=== PATIENT | female | born 1975 | race Caucasian/White ===

== ENCOUNTER 2016-06-02 03:58 | Emergency (ER) | payer OTHER ==
[~2016-06-02] VITALS: Ht 172.7 cm; Wt 72.6 kg
[~2016-06-02 03:58] MED LIST: DIVA250T4 PO
[2016-06-02 04:26] LABS: BILIRUBIN,URINE NEGATIVE (NEG); GLUCOSE,URINE NEGATIVE (NEG); NITRITE,URINE NEGATIVE (NEG); PROTEIN,URINE NEGATIVE (NEG-TRACE); UROBILINOGEN,URINE 0.2 mg/dL (0.2 mg/dL)
[2016-06-02 04:37] LABS: BACTERIA,URINE 0 /HPF (0-FEW); RBC,URINE OCC /HPF (0-2); SQUAMOUS EPITHELIAL CELL,UR MOD /LPF; WBC,URINE OCC /HPF (0-4)
[2016-06-02] MEDS ORDERED: IV NORMAL SALINE 1000ML BAG 1,000 ML IV ONE (05:00)
[2016-06-02] MEDS ORDERED: ONDANSETRON PF 4 MG/2 ML VIAL. IV ONE (05:00)
[2016-06-02 05:11] LABS: BASO % 1 % (0-3); EOS % 6 % (0-3); HEMATOCRIT 34.9 % (36.0-47.0); HEMOGLOBIN 11.4 g/dL (12.0-15.5); LYMPH # 1.8 x10^3/uL (1.0-4.8); LYMPH % 29 % (24-48); MEAN CORPUSCULAR HEMOGLOBIN 28 pg (25-35); MEAN CORPUSCULAR HGB CONC 33 g/dL (31-37); MEAN CORPUSCULAR VOLUME 85 fL (79-100); MONO % 7 % (0-9); NEUT % 57 % (31-73); PLATELET COUNT 204 x10^3/uL (140-400); RED BLOOD COUNT 4.09 x10^6/uL (3.50-5.40); RED CELL DISTRIBUTION WIDTH 14.9 % (11.5-14.5); WHITE BLOOD COUNT 6.2 x10^3/uL (4.0-11.0)
[2016-06-02] MEDS ORDERED: FENTANYL PF 100 MCG/2 ML VIAL. IV ONE (05:15)
[2016-06-02 05:28] LABS: CREATININE 0.7 mg/dL (0.6-1.0); GFR 92.7; POTASSIUM 3.3 mmol/L (3.5-5.1)
[2016-06-02 05:32] LABS: ALBUMIN 3.8 g/dL (3.4-5.0); ALBUMIN/GLOBULIN RATIO 1.1 (1.0-1.7); TOTAL BILIRUBIN 0.5 mg/dL (0.2-1.0); TOTAL PROTEIN 7.4 g/dL (6.4-8.2)
--- NOTE | 2016-06-02 05:52 | RAD ---
PROCEDURE Ultrasound pelvis complete and transvaginal ultrasound pelvis HISTORY Left lower quadrant pain TECHNIQUE Sonographic examination the pelvis was performed by transabdominal and endovaginal technique. Multiple static images were obtained. COMPARISON November 29, 2013 ULTRASOUND PELVIS COMPLETE TRANSABDOMINAL: The uterus and ovaries are not well seen. TRANSVAGINAL ULTRASOUND PELVIS The uterus is diffusely heterogeneous. The junctional zone is not well seen. The endometrium measures 6 millimeters in thickness. There is a small hypoechoic area in the endometrium that measures 6 x 6 by 7 millimeters. The left ovary is seen with normal blood flow measures 1.6 by 2.2 x 1.1 centimeters contains a dominant follicle that measures 1.0 x 1.5 x 0.9 centimeters. The right ovary appears normal with normal blood flow measures 1.7 by 2.7 x 1.8 centimeters and contains a sub centimeter dominant follicle. IMPRESSION 1. Diffuse heterogeneity of the myometrium is consistent with adenomyosis. 2. Small lesion in the endometrium could be a cyst or polyp. 3. Normal ovaries. Electronically signed by: Fabricio Ochoa MD (Jun 02, 2016 05:51:18)
[2016-06-02 06:48] VITALS: BP 142/89
[2016-06-02] MEDS ORDERED: DIPHENHYDRAMINE HCL 25 MG CAPSULE PO ONE (07:00)
[2016-06-02] MEDS ORDERED: DICYCLOMINE HCL 10 MG CAPSULE PO ONE (07:00)
--- NOTE | 2016-06-02 08:43 | ED.ADGEN ---
Past Medical History Past Medical History: Endometriosis, Other Additional Past Medical Histor: MIGRAINES Past Surgical History: Appendectomy, Other Additional Past Surgical Histo: LAPAROSCOPY X 3, HERNIA Alcohol Use: Occasionally Drug Use: Marijuana Adult General Chief Complaint Chief Complaint: ABDOMINAL PAIN HPI HPI Patient is a 40 year old man, history of endometriosis, ovarian cyst, migraines , status post laparoscopic procedure for endometriosis were her appendix was removed concurrently 3 weeks ago, who presents to the emergency department with complaint of left pelvic pain with concern for recurrent ovarian cyst. Patient states she's been experiencing pain over the past several days, states that he did attempt to contact her COMMERCIAL DRONE SOFTWARE DEVELOPER but he is currently out of town. She denies any fevers or chills, states she has no urinary complaints, no weakness, numbness or tingling, no injuries, no discharge or drainage. She states that she has been using ibuprofen at home, "up to 12 pills", with continued pain. States that her symptoms are consistent with previous episodes of ovarian cyst. Review of Systems Review of Systems Constitutional: Denies fever or chills. [] Eyes: Denies change in visual acuity. [] HENT: Denies nasal congestion or sore throat. [] Respiratory: Denies cough or shortness of breath. [] Cardiovascular: Denies chest pain or edema. [] GI: Left pelvic abdominal pain, nausea, no vomiting, no diarrhea. : Denies dysuria. [] Musculoskeletal: Denies back pain or joint pain. [] Integument: Denies rash. [] Neurologic: Denies headache, focal weakness or sensory changes. [] Endocrine: Denies polyuria or polydipsia. [] Lymphatic: Denies swollen glands. [] Psychiatric: Denies depression or anxiety. [] Current Medications Current Medications Current Medications Medications (Trade) Dose Ordered Sig/Delvin Start Time Stop Time Status Last Admin Dose Admin Dicyclomine HCl (Bentyl) 10 mg 1X ONCE 06/02/16 07:00 06/02/16 07:01 DC 06/02/16 07:00 10 MG Diphenhydramine HCl (Benadryl) 25 mg 1X ONCE 06/02/16 07:00 06/02/16 07:01 DC 06/02/16 07:00 25 MG Fentanyl Citrate (Fentanyl 2ml Vial) 50 mcg 1X ONCE 06/02/16 05:15 06/02/16 05:16 DC 06/02/16 05:33 50 MCG Ondansetron HCl 4 mg 4 mg 1X ONCE 06/02/16 05:00 06/02/16 05:01 DC 06/02/16 05:34 4 MG Sodium Chloride (Iv Sodium Chloride 0.9% 1000ml Bag) 1,000 ml @ 1,000 mls/hr 1X ONCE 06/02/16 05:00 06/02/16 05:59 DC 06/02/16 05:34 1,000 MLS/HR Allergies Allergies Allergies Coded Allergies Type Severity Reaction Last Updated Verified Penicillins Allergy Intermediate hives 10/13/15 Yes chlorpromazine Adverse Reaction Intermediate dystonia 10/13/15 Yes haloperidol Adverse Reaction Intermediate dystonia 10/13/15 No hydralazine Adverse Reaction Intermediate dystonia 10/13/15 Yes hydroxyzine Adverse Reaction Intermediate dystonia 10/13/15 Yes ketorolac Adverse Reaction Intermediate nausea and vomiting 10/13/15 Yes metoclopramide Adverse Reaction Intermediate dystonia 10/13/15 Yes morphine Adverse Reaction Intermediate migraines 10/13/15 Yes prochlorperazine Adverse Reaction Intermediate dystonia 10/13/15 Yes Physical Exam Physical Exam Constitutional: Well developed, well nourished, no acute distress, non-toxic appearance. [] HENT: Normocephalic, atraumatic, bilateral external ears normal, oropharynx moist, no oral exudates, nose normal. [] Eyes: PERRLA, EOMI, conjunctiva normal, no discharge. [] Neck: Normal range of motion, no tenderness, supple, no stridor. [] Cardiovascular:Heart rate regular rhythm, no murmur, S1, S2, no rubs or gallops. [] Lungs & Thorax: Bilateral breath sounds clear to auscultation, no wheezing, rhonchi, rales. No chest tenderness or crepitus. [] Abdomen: Bowel sounds normal, soft, mild tenderness to palpation in the left pelvic region, no rebound, rigidity, no guarding, no masses, no pulsatile masses. [] Skin: Warm, dry, no erythema, no rash. [] Back: No tenderness, no CVA tenderness. [] Extremities: No tenderness, no cyanosis, no clubbing, ROM intact, no edema. [] Neurologic: Alert and oriented X 3, normal motor function, normal sensory function, no focal deficits noted. Psychologic: Affect normal, judgement normal, mood normal. [] Pelvic examination: Normal-appearing external examination, bimanual examination reveals mild tenderness palpation in the left adnexa, no masses identified. No CMT. Speculum examination reveals a small amount of whitish discharge, with a normal-appearing cervix. Specimens taken without issue. Current Patient Data Vital Signs Vital Signs Date Time Temp Pulse Resp B/P Pulse Ox O2 Delivery O2 Flow Rate FiO2 06/02/16 06:48 98 18 142/89 100 Room Air 06/02/16 04:20 97.8 97.8 Lab Values Laboratory Tests Test 06/02/16 03:24 06/02/16 04:20 06/02/16 04:50 POC Urine HCG, Qualitative Hcg negative (Negative) Urine Collection Type Unknown Urine Color Yellow Urine Clarity Clear Urine pH 6.0 Urine Specific [place] 1.015 Urine Protein Negativemg/dL (NEG-TRACE) Urine Glucose (UA) Negativemg/dL (NEG) Urine Ketones (Stick) Negativemg/dL (NEG) Urine Blood Negative (NEG) Urine Nitrite Negative (NEG) Urine Bilirubin Negative (NEG) Urine Urobilinogen Dipstick 0.2mg/dL (0.2 mg/dL) Urine Leukocyte Esterase Negative (NEG) Urine RBC Occ/HPF (0-2) Urine WBC Occ/HPF (0-4) Urine Squamous Epithelial Cells Mod/LPF Urine Bacteria 0/HPF (0-FEW) Urine Mucus Marked/LPF White Blood Count 6.2x10^3/uL (4.0-11.0) Red Blood Count 4.09x10^6/uL (3.50-5.40) Hemoglobin 11.4g/dL (12.0-15.5) L Hematocrit 34.9% (36.0-47.0) L Mean Corpuscular Volume 85fL (79-100) Mean Corpuscular Hemoglobin 28pg (25-35) Mean Corpuscular Hemoglobin Concent 33g/dL (31-37) Red Cell Distribution Width 14.9% (11.5-14.5) H Platelet Count 204x10^3/uL (140-400) Neutrophils (%) (Auto) 57% (31-73) Lymphocytes (%) (Auto) 29% (24-48) Monocytes (%) (Auto) 7% (0-9) Eosinophils (%) (Auto) 6% (0-3) H Basophils (%) (Auto) 1% (0-3) Neutrophils # (Auto) 3.5x10^3uL (1.8-7.7) Lymphocytes # (Auto) 1.8x10^3/uL (1.0-4.8) Monocytes # (Auto) 0.4x10^3/uL (0.0-1.1) Eosinophils # (Auto) 0.4x10^3/uL (0.0-0.7) Basophils # (Auto) 0.0x10^3/uL (0.0-0.2) Sodium Level 138mmol/L (136-145) Potassium Level 3.3mmol/L (3.5-5.1) L Chloride Level 100mmol/L (98-107) Carbon Dioxide Level 27mmol/L (21-32) Anion Gap 11 (6-14) Blood Urea Nitrogen 8mg/dL (7-20) Creatinine 0.7mg/dL (0.6-1.0) Estimated GFR (Cockcroft-Gault) 92.7 BUN/Creatinine Ratio 11 (6-20) Glucose Level 82mg/dL (70-99) Calcium Level 9.0mg/dL (8.5-10.1) Total Bilirubin 0.5mg/dL (0.2-1.0) Aspartate Amino Transferase (AST) 12U/L (15-37) L Alanine Aminotransferase (ALT) 17U/L (14-59) Alkaline Phosphatase 96U/L (46-116) Total Protein 7.4g/dL (6.4-8.2) Albumin 3.8g/dL (3.4-5.0) Albumin/Globulin Ratio 1.1 (1.0-1.7) Laboratory Tests 06/02/16 04:50 Laboratory Tests 06/02/16 04:50 Microbiology 06/02/16 Wet Prep - Final, Complete EKG EKG Not indicated. [] Radiology/Procedures Radiology/Procedures [] [facility] [address] [place] [address] IMAGING REPORT Signed PATIENT: AMADEO LUCIANO ACCOUNT: [id number] : 1975 LOCATION: ER AGE: 40 SEX: F EXAM STATUS: REG ER ORD. PHYSICIAN: GURPREET GOMEZ DO REASON: L pelvic pain/ hx ovarian cyst PROCEDURE: PELVIS W/TV PROCEDURE Ultrasound pelvis complete and transvaginal ultrasound pelvis HISTORY Left lower quadrant pain TECHNIQUE Sonographic examination the pelvis was performed by transabdominal and endovaginal technique. Multiple static images were obtained. COMPARISON November 29, 2013 ULTRASOUND PELVIS COMPLETE TRANSABDOMINAL: The uterus and ovaries are not well seen. TRANSVAGINAL ULTRASOUND PELVIS The uterus is diffusely heterogeneous. The junctional zone is not well seen. The endometrium measures 6 millimeters in thickness. There is a small hypoechoic area in the endometrium that measures 6 x 6 by 7 millimeters. The left ovary is seen with normal blood flow measures 1.6 by 2.2 x 1.1 centimeters contains a dominant follicle that measures 1.0 x 1.5 x 0.9 centimeters. The right ovary appears normal with normal blood flow measures 1.7 by 2.7 x 1.8 centimeters and contains a sub centimeter dominant follicle. IMPRESSION 1. Diffuse heterogeneity of the myometrium is consistent with adenomyosis. 2. Small lesion in the endometrium could be a cyst or polyp. 3. Normal ovaries. Electronically signed by: Olegario Ochoa MD (Jun 02, 2016 05:51:18) DICTATED and SIGNED BY: OLEGARIO OCHOA III, MD DATE: 06/02/16 0551 CC: GURPREET GOMEZ DO; NO PCP ~ Course & Med Decision Making Course & Med Decision Making Pertinent Labs and Imaging studies reviewed. (See chart for details) Patient with multiple allergies to medication, received fentanyl IV in the emergency department while evaluation including laboratory studies and ultrasound of the pelvis was being performed. Laboratory studies revealed a mild hypokalemia with potassium of 3.3, wet prep was negative, urinalysis was unremarkable, ultrasound revealed adenomyosis, and a possible small polyp, no evidence of ovarian cyst or free fluid. I did discuss these findings with patient at bedside, and provided the patient with a copy of her ultrasound. I encouraged the patient to follow-up with her COMMERCIAL [employer] SOFTWARE DEVELOPER, to contact the office for additional assistance even if her OB is out of town. Patient given Bentyl in the emergency department, which she states she has taken previously without significant improvement, I discussed with the patient that I am not able to give her any stronger medications or narcotic medications this time based on her evaluation, as is a chronic issue that she would require evaluation from her OB if those have medications were be to prescribe donated prescribed by her primary care provider. Patient was provided with oral Benadryl in the ED. We discussed concerning symptoms that would prompt return to the ED, patient was discharged home in stable condition with instructions to follow-up with her OB/ [employer]ING [employer] INSTALLER, to return if new or concerning symptoms develop. Dragon Disclaimer Dragon Disclaimer This electronic medical record was generated, in whole or in part, using a voice recognition dictation system. Departure Impression: Primary Impression: Pelvic pain Disposition: 01 HOME, SELF-CARE Condition: IMPROVED GURPREET GOMEZ DO Jun 02, 2016 08:43
== END 2016-06-02 07:15 | disposition home or self-care (01) ==
LOC: ER 03:58
DX: R10.2 Pelvic and perineal pain (principal); R10.32 Left lower quadrant pain; G43.909 Migraine, unspecified, not intractable, without status migrainosus; F12.10 Cannabis abuse, uncomplicated; Z90.49 Acquired absence of other specified parts of digestive tract; Z98.890 Other specified postprocedural states; Z88.0 Allergy status to penicillin; Z88.5 Allergy status to narcotic agent; Z88.8 Allergy status to other drugs, medicaments and biological substances
CPT/HCPCS: 76830; 76856; 80053; 81001; 81025; 85027; 87491; 87591; 96361; 96374; 96375; 99285; J2405; J3010; J7030; Q0111; Q0163

== ENCOUNTER 2016-10-25 16:39 | Emergency (ER) | payer OTHER ==
[~2016-10-25] VITALS: Ht 165.1 cm; Wt 70.8 kg
[2016-10-25 17:58] LABS: BILIRUBIN,URINE NEGATIVE (NEG); GLUCOSE,URINE NEGATIVE (NEG); NITRITE,URINE NEGATIVE (NEG); PH,URINE 6.5; PROTEIN,URINE NEGATIVE (NEG-TRACE); UROBILINOGEN,URINE 0.2 mg/dL (0.2 mg/dL)
[2016-10-25 18:03] LABS: BACTERIA,URINE 0 /HPF (0-FEW); RBC,URINE OCC /HPF (0-2); SQUAMOUS EPITHELIAL CELL,UR MOD /LPF; WBC,URINE 0 /HPF (0-4)
[2016-10-25 18:26] LABS: BASO % 1 % (0-3); EOS % 5 % (0-3); HEMATOCRIT 35.4 % (36.0-47.0); HEMOGLOBIN 11.6 g/dL (12.0-15.5); LYMPH # 1.8 x10^3/uL (1.0-4.8); LYMPH % 30 % (24-48); MEAN CORPUSCULAR HEMOGLOBIN 28 pg (25-35); MEAN CORPUSCULAR HGB CONC 33 g/dL (31-37); MEAN CORPUSCULAR VOLUME 86 fL (79-100); MONO % 7 % (0-9); NEUT % 58 % (31-73); PLATELET COUNT 174 x10^3/uL (140-400); RED BLOOD COUNT 4.11 x10^6/uL (3.50-5.40); RED CELL DISTRIBUTION WIDTH 15.1 % (11.5-14.5); WHITE BLOOD COUNT 6.1 x10^3/uL (4.0-11.0)
[2016-10-25] MEDS ORDERED: fentaNYL PF VIAL 100 MCG/2 ML VIAL IV ONE (18:30)
[2016-10-25] MEDS ORDERED: ONDANSETRON PF 4 MG/2 ML VIAL. IV ONE ×2 (18:30→20:15)
[2016-10-25] MEDS ORDERED: diphenhydrAMINE 50 MG/ML VIAL IVP ONE ×2 (18:30→20:15)
[2016-10-25 18:37] LABS: CALCIUM 8.4 mg/dL (8.5-10.1); CREATININE 0.9 mg/dL (0.6-1.0); GFR 69.3; POTASSIUM 3.3 mmol/L (3.5-5.1)
[2016-10-25 18:43] LABS: ALBUMIN 3.6 g/dL (3.4-5.0); ALBUMIN/GLOBULIN RATIO 1.1 (1.0-1.7); TOTAL BILIRUBIN 0.3 mg/dL (0.2-1.0)
[2016-10-25 19:47] VITALS: BP 128/87
--- NOTE | 2016-10-25 19:56 | RAD ---
EXAM: Pelvic sonogram. HISTORY: Right lower quadrant pain. TECHNIQUE: Transabdominal and transvaginal sonographic imaging of the pelvis was performed. COMPARISON: 06/02/2016. FINDINGS: The uterus measures 8.7 x 4.7 x 4.1 cm. The endometrial stripe measures 6 mm in thickness. The junctional zone is indistinct, suggesting adenomyosis. There there is suggestion of a small endometrial cyst. There is fluid within the endocervical canal. The right ovary measures 2.1 x 1.4 x 1.4 cm. The left ovary measures 2.2 x 1.4 x 1.1 cm. There is normal blood flow within both ovaries. There are bilateral dominant ovarian follicles, measuring 1.1 cm on the right and 1.1 cc on the left. There is no pelvic free fluid. IMPRESSION: 1. Indistinct junctional zone suggesting adenomyosis. This is stable in appearance. 2. Suspected small endometrial cyst. 3. Nonspecific fluid within the endocervical canal. Correlate with the phase of the patient's menstrual size. 4. Small dominant bilateral ovarian follicles. Electronically signed by: Juana Cotto MD (10/25/2016 7:53 PM) [facility]
[2016-10-25] MEDS ORDERED: HYDROcodone/APAP 5/325MG 1 TAB TABLET PO ONE ×2 (20:15)
--- NOTE | 2016-10-25 20:18 | PHYS DOC ---
Past Medical History Past Medical History: Endometriosis, Ovarian Cyst, Other Additional Past Medical Histor: MIGRAINES Past Surgical History: Appendectomy, Other Additional Past Surgical Histo: LAPAROSCOPY X 3, INGUINAL HERNIA SX X 3 Alcohol Use: Rarely Drug Use: Marijuana Adult General Chief Complaint Chief Complaint: ABDOMINAL PAIN HPI HPI Patient is a 40 year old female with history of chronic pelvic pain, dermatosis , ovarian cyst, adhesions from previous laparoscopic's surgeries and adenomyosis who presents with exacerbation of pelvic pain. Patient reports right lower quadrant pain, tenderness worse with palpation and movement. Pain is described as both dull and burning is rated moderate. It is unable to find position of comfort. Patient is not currently on control as she is trying to become . She last menstrual period was 2 weeks ago. Patient reports nausea which she relates to pain. Denies fever chills, vomiting, sweats, flank pain. No history of kidney stones. Denies dysuria, urinary frequency and urgency. No vaginal discharge. Previous cholecystectomy and appendectomy. No other acute symptoms or complaints. Review of Systems Review of Systems Review symptoms as per history of present illness. All other review symptoms are negative. Current Medications Current Medications Current Medications Medications (Trade) Dose Ordered Sig/Delvin Start Time Stop Time Status Last Admin Dose Admin Acetaminophen/ Hydrocodone Bitart (Lortab 5/325) 1 tab 1X ONCE 10/25/16 20:15 10/25/16 20:16 Diphenhydramine HCl (Benadryl) 25 mg 1X ONCE 10/25/16 20:15 10/25/16 20:16 Fentanyl Citrate (Fentanyl 2ml Vial) 50 mcg 1X ONCE 10/25/16 18:30 10/25/16 18:32 DC 10/25/16 18:52 50 MCG Ondansetron HCl (Zofran) 4 mg 1X ONCE 10/25/16 20:15 10/25/16 20:16 Allergies Allergies Allergies Coded Allergies Type Severity Reaction Last Updated Verified Penicillins Allergy Intermediate hives 10/13/15 Yes chlorpromazine Adverse Reaction Intermediate dystonia 10/13/15 Yes haloperidol Adverse Reaction Intermediate dystonia 10/13/15 No hydralazine Adverse Reaction Intermediate dystonia 10/13/15 Yes hydroxyzine Adverse Reaction Intermediate dystonia 10/13/15 Yes ketorolac Adverse Reaction Intermediate nausea and vomiting 10/13/15 Yes metoclopramide Adverse Reaction Intermediate dystonia 10/13/15 Yes morphine Adverse Reaction Intermediate migraines 10/13/15 Yes prochlorperazine Adverse Reaction Intermediate dystonia 10/13/15 Yes Physical Exam Physical Exam Constitutional: Well developed, well nourished, alert discomfort secondary to pain [] HENT: Normocephalic, atraumatic, bilateral external ears normal, oropharynx moist, no oral exudates, nose normal. [] Eyes: PERRLA, EOMI, conjunctiva normal, no discharge. [] Neck: Normal range of motion, no tenderness, supple, no stridor. [] Cardiovascular:Heart rate regular rhythm, no murmur. [] Lungs & Thorax: Bilateral breath sounds clear to auscultation [] Abdomen: Bowel sounds normal, soft, lower pelvic pain, tenderness, no rebound rigidity or guarding.. [] Skin: Warm, dry, no erythema, no rash. [] Back: No tenderness, no CVA tenderness. [] Extremities: No tenderness, no cyanosis, no clubbing, ROM intact, no edema. [] Neurologic: Alert and oriented X 3, normal motor function, normal sensory function, no focal deficits noted. [] Psychologic: Affect normal, judgement normal, mood normal. [] Current Patient Data Vital Signs Vital Signs Date Time Temp Pulse Resp B/P (MAP) Pulse Ox O2 Delivery O2 Flow Rate FiO2 10/25/16 19:17 70 126/88 (101) 99 Room Air 10/25/16 18:52 16 10/25/16 18:01 98.4 98.4 Lab Values Laboratory Tests Test 10/25/16 16:54 10/25/16 17:41 10/25/16 18:14 POC Urine HCG, Qualitative Hcg negative (Negative) Urine Collection Type Unknown Urine Color Yellow Urine Clarity Clear Urine pH 6.5 Urine Specific [place] 1.010 Urine Protein Negative mg/dL (NEG-TRACE) Urine Glucose (UA) Negative mg/dL (NEG) Urine Ketones (Stick) Negative mg/dL (NEG) Urine Blood Negative (NEG) Urine Nitrite Negative (NEG) Urine Bilirubin Negative (NEG) Urine Urobilinogen Dipstick 0.2 mg/dL (0.2 mg/dL) Urine Leukocyte Esterase Negative (NEG) Urine RBC Occ /HPF (0-2) Urine WBC 0 /HPF (0-4) Urine Squamous Epithelial Cells Mod /LPF Urine Bacteria 0 /HPF (0-FEW) Urine Mucus Mod /LPF White Blood Count 6.1 x10^3/uL (4.0-11.0) Red Blood Count 4.11 x10^6/uL (3.50-5.40) Hemoglobin 11.6 g/dL (12.0-15.5) L Hematocrit 35.4 % (36.0-47.0) L Mean Corpuscular Volume 86 fL (79-100) Mean Corpuscular Hemoglobin 28 pg (25-35) Mean Corpuscular Hemoglobin Concent 33 g/dL (31-37) Red Cell Distribution Width 15.1 % (11.5-14.5) H Platelet Count 174 x10^3/uL (140-400) Neutrophils (%) (Auto) 58 % (31-73) Lymphocytes (%) (Auto) 30 % (24-48) Monocytes (%) (Auto) 7 % (0-9) Eosinophils (%) (Auto) 5 % (0-3) H Basophils (%) (Auto) 1 % (0-3) Neutrophils # (Auto) 3.5 x10^3uL (1.8-7.7) Lymphocytes # (Auto) 1.8 x10^3/uL (1.0-4.8) Monocytes # (Auto) 0.4 x10^3/uL (0.0-1.1) Eosinophils # (Auto) 0.3 x10^3/uL (0.0-0.7) Basophils # (Auto) 0.0 x10^3/uL (0.0-0.2) Sodium Level 139 mmol/L (136-145) Potassium Level 3.3 mmol/L (3.5-5.1) L Chloride Level 105 mmol/L (98-107) Carbon Dioxide Level 27 mmol/L (21-32) Anion Gap 7 (6-14) Blood Urea Nitrogen 7 mg/dL (7-20) Creatinine 0.9 mg/dL (0.6-1.0) Estimated GFR (Cockcroft-Gault) 69.3 BUN/Creatinine Ratio 8 (6-20) Glucose Level 85 mg/dL (70-99) Calcium Level 8.4 mg/dL (8.5-10.1) L Total Bilirubin 0.3 mg/dL (0.2-1.0) Aspartate Amino Transferase (AST) 10 U/L (15-37) L Alanine Aminotransferase (ALT) 17 U/L (14-59) Alkaline Phosphatase 74 U/L (46-116) Total Protein 7.0 g/dL (6.4-8.2) Albumin 3.6 g/dL (3.4-5.0) Albumin/Globulin Ratio 1.1 (1.0-1.7) Laboratory Tests 10/25/16 18:14 Laboratory Tests 10/25/16 18:14 EKG EKG [] Radiology/Procedures Radiology/Procedures [Pelvic ultrasound: No acute findings per radiology report.] Course & Med Decision Making Course & Med Decision Making Pertinent Labs and Imaging studies reviewed. (See chart for details) [Exacerbation of chronic pelvic pain. Lab work, ultrasound unrevealing for acute pathology. Patient given pain and nausea medication while in the ED. Will defer further management of chronic pain to patient's PCP and/or SUEDE CLEANER.] Dragon Disclaimer Dragon Disclaimer This electronic medical record was generated, in whole or in part, using a voice recognition dictation system. Departure Departure Impression: Primary Impression: Pelvic pain Disposition: 01 HOME, SELF-CARE Condition: IMPROVED Referrals: LATANYA SILVERIO MD (PCP) Patient Instructions: Pelvic Pain, Female, [id number] Additional Instructions: Please follow-up with your PCP and/or egg crater for management of chronic pelvic pain. MARY ANN BOND DO Oct 25, 2016 20:18
== END 2016-10-25 20:30 | disposition home or self-care (01) ==
LOC: ER 16:39
DX: R10.2 Pelvic and perineal pain (principal); G89.29 Other chronic pain; R10.31 Right lower quadrant pain; R00.2 Palpitations; G43.909 Migraine, unspecified, not intractable, without status migrainosus; Z90.49 Acquired absence of other specified parts of digestive tract; Z88.0 Allergy status to penicillin; Z88.5 Allergy status to narcotic agent; Z88.8 Allergy status to other drugs, medicaments and biological substances
CPT/HCPCS: 36415; 76856; 80053; 81001; 81025; 85025; 86141; 96374; 96375; 96376; 99285; J1200; J2405; J3010

== ENCOUNTER 2017-05-09 09:56 | Emergency (ER) | payer OTHER ==
[2017-05-09 10:10] LABS: URINE HCG POC HCG NEGATIVE (Negative)
[2017-05-09] MEDS: IV NORMAL SALINE 1000ML BAG 1,000 ML IV (10:30)
[2017-05-09] MEDS: fentaNYL PF VIAL 100 MCG/2 ML VIAL IV (10:30)
[2017-05-09] MEDS: ONDANSETRON PF 4 MG/2 ML VIAL. IV (10:30)
[2017-05-09 10:37] LABS: ADD MAN DIFF? NO
[2017-05-09 10:42] LABS: BASO % 1 % (0-3); EOS # 0.1 x10^3/uL (0.0-0.7); EOS % 3 % (0-3); HEMOGLOBIN 12.5 g/dL (12.0-15.5); LYMPH # 1.3 x10^3/uL (1.0-4.8); LYMPH % 24 % (24-48); MEAN CORPUSCULAR HEMOGLOBIN 26 pg (25-35); MEAN CORPUSCULAR HGB CONC 33 g/dL (31-37); MEAN CORPUSCULAR VOLUME 79 fL (79-100); MONO # 0.3 x10^3/uL (0.0-1.1); MONO % 6 % (0-9); NEUT # 3.7 x10^3uL (1.8-7.7); NEUT % 66 % (31-73); PLATELET COUNT 214 x10^3/uL (140-400); RED BLOOD COUNT 4.81 x10^6/uL (3.50-5.40); RED CELL DISTRIBUTION WIDTH 17.5 % (11.5-14.5); WHITE BLOOD COUNT 5.5 x10^3/uL (4.0-11.0)
[2017-05-09 10:50] LABS: ANION GAP 9 (6-14); BLOOD UREA NITROGEN 10 mg/dL (7-20); BUN/CREATININE RATIO 13 (6-20); CALCIUM 9.3 mg/dL (8.5-10.1); CARBON DIOXIDE 27 mmol/L (21-32); CHLORIDE 104 mmol/L (98-107); CREATININE 0.8 mg/dL (0.6-1.0); GLUCOSE 98 mg/dL (70-99); POTASSIUM 4.2 mmol/L (3.5-5.1); SODIUM 140 mmol/L (136-145)
[2017-05-09 10:56] LABS: ALBUMIN 3.5 g/dL (3.4-5.0); ALBUMIN/GLOBULIN RATIO 0.8 (1.0-1.7); ALK PHOS 108 U/L (46-116); ALT (SGPT) 16 U/L (14-59); AST (SGOT) 21 U/L (15-37); TOTAL BILIRUBIN 0.5 mg/dL (0.2-1.0); TOTAL PROTEIN 8.1 g/dL (6.4-8.2)
[2017-05-09 11:57] LABS: BILIRUBIN,URINE NEGATIVE (NEG); CLARITY,URINE CLEAR; COLOR,URINE YELLOW; GLUCOSE,URINE NEGATIVE (NEG); NITRITE,URINE NEGATIVE (NEG); PROTEIN,URINE NEGATIVE (NEG-TRACE); UROBILINOGEN,URINE 0.2 mg/dL (0.2 mg/dL)
[2017-05-09 12:03] LABS: BACTERIA,URINE MANY /HPF (0-FEW); SQUAMOUS EPITHELIAL CELL,UR MANY /LPF
[2017-05-10 14:28] LABS: CHLAMYDIA PROBE Negative (Negative); GC PROBE Negative (Negative)
== END 2017-05-09 13:01 | disposition home or self-care (01) ==
LOC: ER 09:56
DX: R10.2 Pelvic and perineal pain (principal); Z76.5 Malingerer [conscious simulation]; G43.909 Migraine, unspecified, not intractable, without status migrainosus; F12.10 Cannabis abuse, uncomplicated; Z90.49 Acquired absence of other specified parts of digestive tract; Z98.890 Other specified postprocedural states; Z88.0 Allergy status to penicillin; Z88.6 Allergy status to analgesic agent; Z88.5 Allergy status to narcotic agent; Z88.8 Allergy status to other drugs, medicaments and biological substances
CPT/HCPCS: 36415; 76830; 80053; 81001; 81025; 85025; 87491; 87591; 96361; 96374; 96375; 99285-25; J2405; J3010; J7030

== ENCOUNTER 2017-11-06 18:03 | Emergency (ER) | payer SELFPAY ==
[~2017-11-06] VITALS: Ht 165.1 cm; Wt 62.6 kg
[~2017-11-06 18:03] MED LIST changes: +AZIT500T PO; +CEFI200S PO; +METR500T PO; +NAPR-683 PO
[2017-11-06 19:09] VITALS: BP 146/94
--- NOTE | 2017-11-06 19:13 | PHYS DOC ---
Past Medical History Past Medical History: Endometriosis, Ovarian Cyst, Other Additional Past Medical Histor: MIGRAINES Past Surgical History: Appendectomy, Other Additional Past Surgical Histo: LAPAROSCOPY X 3, INGUINAL HERNIA SX X 3 Alcohol Use: Occasionally Drug Use: Marijuana Adult General Chief Complaint Chief Complaint: ABDOMINAL PAIN HPI HPI Patient is a 41 year old female with a history of ovarian cyst presents the ED complaining of abdominal pain times one day. Patient states the pain started last night. Describes the pain as sharp. Rates the pain as 7 out of 10. States she has taken [id number] medications without relief. Pain is in the right lower quadrant. Patient has a history of an appendectomy. Denies vaginal discharge, STD exposure, vaginal bleeding, back pain, diarrhea, nausea/vomiting , chest pain, shortness of breath or fever. Review of Systems Review of Systems Constitutional: Denies fever or chills [] Eyes: Denies change in visual acuity, redness, or eye pain [] HENT: Denies nasal congestion or sore throat [] Respiratory: Denies cough or shortness of breath [] Cardiovascular: No additional information not addressed in HPI [] GI: Complains of abdominal pain. Denies nausea, vomiting, bloody stools or diarrhea [] : Denies dysuria or hematuria [] Musculoskeletal: Denies back pain or joint pain [] Integument: Denies rash or skin lesions [] Neurologic: Denies headache, focal weakness or sensory changes [] All other systems were reviewed and found to be within normal limits, except as documented in this note. Current Medications Current Medications Current Medications Medications (Trade) Dose Ordered Sig/Delvin Start Time Stop Time Status Last Admin Dose Admin Diphenhydramine HCl (Benadryl) 25 mg 1X ONCE 11/06/17 21:00 11/06/17 21:01 DC 11/06/17 21:00 25 MG Fentanyl Citrate (Fentanyl 2ml Vial) 75 mcg 1X ONCE 11/06/17 19:30 11/06/17 19:31 DC 11/06/17 20:27 75 MCG Ondansetron HCl (Zofran) 4 mg 1X ONCE 11/06/17 19:30 11/06/17 19:31 DC 11/06/17 20:27 4 MG Allergies Allergies Allergies Coded Allergies Type Severity Reaction Last Updated Verified Penicillins Allergy Intermediate hives 10/13/15 Yes chlorpromazine Adverse Reaction Intermediate dystonia 10/13/15 Yes haloperidol Adverse Reaction Intermediate dystonia 10/13/15 No hydralazine Adverse Reaction Intermediate dystonia 10/13/15 Yes hydroxyzine Adverse Reaction Intermediate dystonia 10/13/15 Yes ketorolac Adverse Reaction Intermediate nausea and vomiting 10/13/15 Yes metoclopramide Adverse Reaction Intermediate dystonia 10/13/15 Yes morphine Adverse Reaction Intermediate migraines 10/13/15 Yes prochlorperazine Adverse Reaction Intermediate dystonia 10/13/15 Yes Physical Exam Physical Exam Constitutional: Well developed, well nourished, no acute distress, non-toxic appearance. [] HENT: Normocephalic, atraumatic Neck: Normal range of motion, no tenderness, supple, no stridor. [] Cardiovascular:Heart rate regular rhythm, no murmur [] Lungs & Thorax: Bilateral breath sounds clear to auscultation [] Abdomen: Bowel sounds normal, soft, mild right lower abdominal tenderness, no masses, no pulsatile masses. [] Skin: Warm, dry, no erythema, no rash. [] Back: No tenderness, no CVA tenderness. [] Extremities: No tenderness, no cyanosis, no clubbing, ROM intact, no edema. [] Neurologic: Alert and oriented X 3, normal motor function, normal sensory function, no focal deficits noted. [] Psychologic: Affect normal, judgement normal, mood normal. [] Current Patient Data Vital Signs Vital Signs Date Time Temp Pulse Resp B/P (MAP) Pulse Ox O2 Delivery O2 Flow Rate FiO2 11/06/17 20:27 16 98 Room Air 11/06/17 19:09 98.3 108 146/94 (111) 98.3 Lab Values Laboratory Tests Test 11/06/17 19:04 11/06/17 20:22 Urine Collection Type Void Urine Color Yellow Urine Clarity Clear Urine pH 6.0 Urine Specific [place] 1.010 Urine Protein Negative mg/dL (NEG-TRACE) Urine Glucose (UA) Negative mg/dL (NEG) Urine Ketones (Stick) Negative mg/dL (NEG) Urine Blood Negative (NEG) Urine Nitrite Negative (NEG) Urine Bilirubin Negative (NEG) Urine Urobilinogen Dipstick 0.2 mg/dL (0.2 mg/dL) Urine Leukocyte Esterase Negative (NEG) Urine RBC 0 /HPF (0-2) Urine WBC 1-4 /HPF (0-4) Urine Squamous Epithelial Cells Few /LPF Urine Bacteria Few /HPF (0-FEW) Urine Mucus Slight /LPF White Blood Count 5.5 x10^3/uL (4.0-11.0) Red Blood Count 4.32 x10^6/uL (3.50-5.40) Hemoglobin 12.5 g/dL (12.0-15.5) Hematocrit 36.8 % (36.0-47.0) Mean Corpuscular Volume 85 fL (79-100) Mean Corpuscular Hemoglobin 29 pg (25-35) Mean Corpuscular Hemoglobin Concent 34 g/dL (31-37) Red Cell Distribution Width 15.3 % (11.5-14.5) H Platelet Count 109 x10^3/uL (140-400) L Neutrophils (%) (Auto) 58 % (31-73) Lymphocytes (%) (Auto) 30 % (24-48) Monocytes (%) (Auto) 4 % (0-9) Eosinophils (%) (Auto) 8 % (0-3) H Basophils (%) (Auto) 0 % (0-3) Neutrophils # (Auto) 3.1 x10^3uL (1.8-7.7) Lymphocytes # (Auto) 1.6 x10^3/uL (1.0-4.8) Monocytes # (Auto) 0.2 x10^3/uL (0.0-1.1) Eosinophils # (Auto) 0.4 x10^3/uL (0.0-0.7) Basophils # (Auto) 0.0 x10^3/uL (0.0-0.2) Sodium Level 140 mmol/L (136-145) Potassium Level 3.5 mmol/L (3.5-5.1) Chloride Level 105 mmol/L (98-107) Carbon Dioxide Level 26 mmol/L (21-32) Anion Gap 9 (6-14) Blood Urea Nitrogen 8 mg/dL (7-20) Creatinine 0.7 mg/dL (0.6-1.0) Estimated GFR (Cockcroft-Gault) 92.2 BUN/Creatinine Ratio 11 (6-20) Glucose Level 84 mg/dL (70-99) Calcium Level 8.4 mg/dL (8.5-10.1) L Total Bilirubin 0.2 mg/dL (0.2-1.0) Aspartate Amino Transferase (AST) 11 U/L (15-37) L Alanine Aminotransferase (ALT) 16 U/L (14-59) Alkaline Phosphatase 82 U/L (46-116) Total Protein 7.1 g/dL (6.4-8.2) Albumin 3.4 g/dL (3.4-5.0) Albumin/Globulin Ratio 0.9 (1.0-1.7) L Laboratory Tests 11/06/17 20:22 Laboratory Tests 11/06/17 20:22 EKG EKG [] Radiology/Procedures Radiology/Procedures PROCEDURE: PELVIS COMPLETE Indication:RT PELVIC PAIN TECHNIQUE: Grayscale, color Doppler and spectral waveform images of the pelvis obtained. COMPARISON:Previous study from 05/09/2017 FINDINGS: Trace amount of fluid is seen in the endocervical canal. Nabothian cysts are seen in the cervix, the largest measuring 1 cm. The uterus is anteverted and measures 8.7 x 5.1 x 4.5 centers (longitudinal, transverse, AP). Endometrium measures 9 mm in thickness and is within normal limits. No endometrial vascularity. 0.4 x 0.3 x 0.5 cm anechoic lesion in the myometrium likely myometrial cyst. The left ovary measures 2.5 x 1.7 x 1.6 cm with a 1.0 x 1.5 x 1.6 m anechoic lesion most likely a dominant follicle. The left ovary demonstrates evidence of blood flow. The right ovary measures 2.6 x 1.5 x 1.4 cm with a 1.2 x 1.0 x 1.3 cm anechoic lesion most likely a dominant follicle. Right ovary demonstrates evidence of blood flow. IMPRESSION: 1. Bilateral ovaries demonstrate evidence of blood flow. 2. Trace amount of fluid in the endocervical canal likely physiologic. [] Course & Med Decision Making Course & Med Decision Making Pertinent Labs and Imaging studies reviewed. (See chart for details) []Discussed lab and imaging findings with patient. Patient's pain improved. States she is much better. On reexamination, abdomen is soft nontender nondistended. No peritoneal signs. Tolerating by mouth. Discussed symptomatic treatment outpatient. Discussed follow-up with [facility] this week. Provided contact information/education. Discussed reasons to return to the ED. Patient understands and agrees with plan. Dragon Disclaimer Dragon Disclaimer This electronic medical record was generated, in whole or in part, using a voice recognition dictation system. Departure Departure Impression: Primary Impression: Pelvic pain Disposition: HOME, SELF-CARE Condition: IMPROVED Referrals: LATANYA SILVERIO MD (PCP) MIRNA PINO MD Patient Instructions: Pelvic Pain, Female DARNELL TATUM Nov 06, 2017 19:13
[2017-11-06 19:14] LABS: BILIRUBIN,URINE NEGATIVE (NEG); CLARITY,URINE CLEAR; COLOR,URINE YELLOW; NITRITE,URINE NEGATIVE (NEG); PROTEIN,URINE NEGATIVE (NEG-TRACE); UROBILINOGEN,URINE 0.2 mg/dL (0.2 mg/dL)
[2017-11-06 19:23] LABS: RBC,URINE 0 /HPF (0-2)
[2017-11-06 19:24] LABS: BACTERIA,URINE FEW /HPF (0-FEW); SQUAMOUS EPITHELIAL CELL,UR FEW /LPF
[2017-11-06] MEDS: ONDANSETRON PF 4 MG/2 ML VIAL. IV ONE (20:27)
[2017-11-06] MEDS: fentaNYL PF VIAL 100 MCG/2 ML VIAL IV ONE (20:27)
[2017-11-06 20:29] LABS: BASO % 0 % (0-3); EOS # 0.4 x10^3/uL (0.0-0.7); EOS % 8 % (0-3); HEMATOCRIT 36.8 % (36.0-47.0); HEMOGLOBIN 12.5 g/dL (12.0-15.5); LYMPH # 1.6 x10^3/uL (1.0-4.8); LYMPH % 30 % (24-48); MEAN CORPUSCULAR HEMOGLOBIN 29 pg (25-35); MEAN CORPUSCULAR HGB CONC 34 g/dL (31-37); MEAN CORPUSCULAR VOLUME 85 fL (79-100); MONO # 0.2 x10^3/uL (0.0-1.1); MONO % 4 % (0-9); NEUT # 3.1 x10^3uL (1.8-7.7); NEUT % 58 % (31-73); PLATELET COUNT 109 x10^3/uL (140-400); RED BLOOD COUNT 4.32 x10^6/uL (3.50-5.40); RED CELL DISTRIBUTION WIDTH 15.3 % (11.5-14.5); WHITE BLOOD COUNT 5.5 x10^3/uL (4.0-11.0)
--- NOTE | 2017-11-06 20:33 | RAD ---
Indication:RT PELVIC PAIN TECHNIQUE: Grayscale, color Doppler and spectral waveform images of the pelvis obtained. COMPARISON:Previous study from 05/09/2017 FINDINGS: Trace amount of fluid is seen in the endocervical canal. Nabothian cysts are seen in the cervix, the largest measuring 1 cm. The uterus is anteverted and measures 8.7 x 5.1 x 4.5 centers (longitudinal, transverse, AP). Endometrium measures 9 mm in thickness and is within normal limits. No endometrial vascularity. 0.4 x 0.3 x 0.5 cm anechoic lesion in the myometrium likely myometrial cyst. The left ovary measures 2.5 x 1.7 x 1.6 cm with a 1.0 x 1.5 x 1.6 m anechoic lesion most likely a dominant follicle. The left ovary demonstrates evidence of blood flow. The right ovary measures 2.6 x 1.5 x 1.4 cm with a 1.2 x 1.0 x 1.3 cm anechoic lesion most likely a dominant follicle. Right ovary demonstrates evidence of blood flow. IMPRESSION: 1. Bilateral ovaries demonstrate evidence of blood flow. 2. Trace amount of fluid in the endocervical canal likely physiologic. Electronically signed by: Oleg Bruno DO (11/06/2017 8:29 PM) [facility]
[2017-11-06 20:36] LABS: CALCIUM 8.4 mg/dL (8.5-10.1); CREATININE 0.7 mg/dL (0.6-1.0); GFR 92.2; POTASSIUM 3.5 mmol/L (3.5-5.1)
[2017-11-06 20:43] LABS: ALBUMIN 3.4 g/dL (3.4-5.0); ALBUMIN/GLOBULIN RATIO 0.9 (1.0-1.7); TOTAL BILIRUBIN 0.2 mg/dL (0.2-1.0); TOTAL PROTEIN 7.1 g/dL (6.4-8.2)
[2017-11-06] MEDS: diphenhydrAMINE HCL 25 MG CAPSULE PO ONE (21:00)
== END 2017-11-06 21:44 | disposition home or self-care (01) ==
LOC: ER 18:03
DX: N88.8 Other specified noninflammatory disorders of cervix uteri (principal); R10.2 Pelvic and perineal pain; R10.31 Right lower quadrant pain; G43.909 Migraine, unspecified, not intractable, without status migrainosus; Z90.89 Acquired absence of other organs; Z88.0 Allergy status to penicillin; Z88.5 Allergy status to narcotic agent; Z88.8 Allergy status to other drugs, medicaments and biological substances
CPT/HCPCS: 36415; 76856; 80053; 81001; 85025; 96374; 96375; 99285; J2405; J3010; Q0163

== ENCOUNTER 2018-03-04 11:23 | Emergency (ER) | payer SELFPAY ==
[~2018-03-04] VITALS: Ht 165.1 cm; Wt 59.0 kg
[2018-03-04 11:48] LABS: BILIRUBIN,URINE NEGATIVE (NEG); CLARITY,URINE CLEAR; COLOR,URINE YELLOW; NITRITE,URINE NEGATIVE (NEG); PROTEIN,URINE NEGATIVE (NEG-TRACE); UROBILINOGEN,URINE 0.2 mg/dL (0.2 mg/dL)
[2018-03-04 11:58] LABS: BACTERIA,URINE 0 /HPF (0-FEW); RBC,URINE 0 /HPF (0-2); SQUAMOUS EPITHELIAL CELL,UR FEW /LPF; WBC,URINE 0 /HPF (0-4)
[2018-03-04] MEDS ORDERED: fentaNYL PF VIAL 100 MCG/2 ML VIAL IV ONE (12:00)
[2018-03-04] MEDS ORDERED: ONDANSETRON ODT 4 MG TAB.RAPDIS. PO ONE (12:00)
[2018-03-04] MEDS ORDERED: diphenhydrAMINE HCL 25 MG CAPSULE PO ONE ×2 (12:45→12:48)
[2018-03-04] MEDS ORDERED: KETAMINE HCL IN STERILE WATER 50 MG/5 ML SYRINGE IV ONE (14:00)
[2018-03-04] MEDS ORDERED: ONDANSETRON PF 4 MG/2 ML VIAL. IV ONE (14:00)
--- NOTE | 2018-03-04 14:39 | RAD ---
ACUTE ABDOMEN SERIES History: LOW ABDOMEN PAIN FOR 3 DAYS, VAGINAL BLEEDING. Comparison: None are available Single view of the chest demonstrates no evidence of infiltrate, effusion or pneumothorax. There is no infiltrate or consolidation. Cardiac silhouette not enlarged. No evidence of free intraperitoneal gas. Bowel gas pattern is not overtly obstructive. There is mild gas and stool in the colon. No pathologic calcifications are suggested. IMPRESSION: No acute radiographic findings. Electronically signed by: Kei Vital MD (03/04/2018 2:35 PM) [facility]
--- NOTE | 2018-03-04 14:55 | RAD ---
Indication:SEVERE RIGHT SIDED PELVIC PAIN/VAGINAL BLEEDING X'S 2 DAYS. LMP-02/18/2018. G2,P0. TECHNIQUE: Grayscale, color Doppler and spectral waveform images of the pelvis obtained. COMPARISON:11/06/2017 FINDINGS: Uterus is anteverted and measures 8.8 x 4.7 x 6.1 cm (longitudinal, AP, transverse). Endometrial stripe measures 7 mm in thickness and is within normal limits. 0.7 x 0.4 x 0.8 cm round anechoic lesion is seen in the anterior to or anterior aspect of the cervix most likely simple or nabothian cyst. Bilateral ovaries are not seen. No free pelvic fluid. IMPRESSION: 1. Bilateral ovaries not seen. Electronically signed by: Oleg Bruno DO (03/04/2018 2:51 PM) [facility]
[2018-03-04 15:00] VITALS: BP 108/69
--- NOTE | 2018-03-04 15:13 | PHYS DOC ---
Past Medical History Past Medical History: Endometriosis, Other Additional Past Medical Histor: MIGRAINES, OVARIAN CYSTS Past Surgical History: Appendectomy, Other Additional Past Surgical Histo: HERNIA REPAIR, LAP SX FOR ENDOMETRIOSIS Alcohol Use: Occasionally Drug Use: None Adult General Chief Complaint Chief Complaint: ABDOMINAL PAIN HPI HPI Patient is a 42 year old female who presents with pelvic pain. She is very tearful and states that she has endometriosis. She states that she is allergic to many medications. She has been seen at this facility numerous times for pelvic pain. She has requested pain medication numerous times and stresses that she needs to have Benadryl for morphine use. She also would like Zofran. She was requesting IV Benadryl from the nurse. She states that it is mid pelvic pain with tenderness to the right. She denies sexual activity or any possibility of an STD. She denies fever or vomiting. She denies diarrhea or constipation. She has migraine pain at as her past medical history as well as sciatic pain. She states that this feels different from her sciatica. Review of Systems Review of Systems Constitutional: Denies fever or chills [] Eyes: Denies change in visual acuity, redness, or eye pain [] HENT: Denies nasal congestion or sore throat [] Respiratory: Denies cough or shortness of breath [] Cardiovascular: No additional information not addressed in HPI [] GI: Denies abdominal pain, nausea, vomiting, bloody stools or diarrhea [] : See history of present illness Musculoskeletal: Denies back pain or joint pain [] Integument: Denies rash or skin lesions [] Neurologic: Denies headache, focal weakness or sensory changes [] Endocrine: Denies polyuria or polydipsia [] All other systems were reviewed and found to be within normal limits, except as documented in this note. Current Medications Current Medications Current Medications Medications (Trade) Dose Ordered Sig/Delvin Start Time Stop Time Status Last Admin Dose Admin Diphenhydramine HCl (Benadryl) 25 mg STK-MED ONCE 03/04/18 12:48 03/04/18 12:50 DC Fentanyl Citrate (Fentanyl 2ml Vial) 50 mcg 1X ONCE 03/04/18 12:00 03/04/18 12:01 DC 03/04/18 12:40 50 MCG Ketamine HCl (Ketamine) 15 mg 1X ONCE 03/04/18 14:00 03/04/18 14:01 DC 03/04/18 14:16 15 MG Ondansetron HCl (Zofran Odt) 4 mg 1X ONCE 03/04/18 12:00 03/04/18 12:01 DC 03/04/18 12:39 4 MG Ondansetron HCl (Zofran) 4 mg 1X ONCE 03/04/18 14:00 03/04/18 14:01 DC 03/04/18 14:16 4 MG Allergies Allergies Allergies Coded Allergies Type Severity Reaction Last Updated Verified Penicillins Allergy Intermediate hives 10/13/15 Yes fentanyl Allergy Intermediate Rash 03/04/18 Yes chlorpromazine Adverse Reaction Intermediate dystonia 10/13/15 Yes haloperidol Adverse Reaction Intermediate dystonia 10/13/15 No hydralazine Adverse Reaction Intermediate dystonia 10/13/15 Yes hydroxyzine Adverse Reaction Intermediate dystonia 10/13/15 Yes ketorolac Adverse Reaction Intermediate nausea and vomiting 10/13/15 Yes metoclopramide Adverse Reaction Intermediate dystonia 10/13/15 Yes morphine Adverse Reaction Intermediate migraines 10/13/15 Yes prochlorperazine Adverse Reaction Intermediate dystonia 10/13/15 Yes Physical Exam Physical Exam Constitutional: Well developed, well nourished, no acute distress, non-toxic appearance. [] Cardiovascular:Heart rate regular rhythm, no murmur [] Lungs & Thorax: Bilateral breath sounds clear to auscultation [] Abdomen: Bowel sounds normal, soft, suprapubic tenderness, no masses, no pulsatile masses. [] Skin: Warm, dry, no erythema, no rash. [] Back: No tenderness, no CVA tenderness. [] Extremities: No tenderness, no cyanosis, no clubbing, ROM intact, no edema. [] Neurologic: Alert and oriented X 3, normal motor function, normal sensory function, no focal deficits noted. [] Psychologic: Affect normal, judgement normal, mood normal. [] Current Patient Data Vital Signs Vital Signs Date Time Temp Pulse Resp B/P (MAP) Pulse Ox O2 Delivery O2 Flow Rate FiO2 03/04/18 15:00 106 14 108/69 (82) 99 Room Air 03/04/18 11:30 98.0 98.0 Lab Values Laboratory Tests Test 03/04/18 11:35 03/04/18 11:38 Urine Collection Type Unknown Urine Color Yellow Urine Clarity Clear Urine pH 6.0 Urine Specific [place] 1.010 Urine Protein Negative mg/dL (NEG-TRACE) Urine Glucose (UA) Negative mg/dL (NEG) Urine Ketones (Stick) Negative mg/dL (NEG) Urine Blood Negative (NEG) Urine Nitrite Negative (NEG) Urine Bilirubin Negative (NEG) Urine Urobilinogen Dipstick 0.2 mg/dL (0.2 mg/dL) Urine Leukocyte Esterase Negative (NEG) Urine RBC 0 /HPF (0-2) Urine WBC 0 /HPF (0-4) Urine Squamous Epithelial Cells Few /LPF Urine Bacteria 0 /HPF (0-FEW) POC Urine HCG, Qualitative Hcg negative (Negative) EKG EKG [] Radiology/Procedures Radiology/Procedures [] Course & Med Decision Making Course & Med Decision Making Pertinent Labs and Imaging studies reviewed. (See chart for details) [][]The patient received a dose of Zofran and febntanyl a lot of [place] workup history. First set of the report in the emergency department she then told the nurse that she thought she was having a reaction to the fentanyl. She was given by mouth Benadryl. She then requested more pain medication. We explained that she had a reaction to fentanyl and she is allergic to almost all the other pain medications that we have offer. I was not willing to repeat the fentanyl considering that she felt like she was having an allergic reaction to it. The patient was very tearful. She then told the nurse that she wanted the nurse advocate's number because she would be leaving here feeling worse than when she got here. I stated to her that I was not discharging her the right did not even have her test results back. She was then offered IV ketamine for her pain. She was eager to try that pain medication. She was given 15 mg of IV ketamine as well as Zofran for her increased nausea. When we went to try to discharge the patient we found that she had eloped from the emergency department with her IV still intact. She was on security camera pushing her vehicle out of a parking space and then getting into the vehicle and driving. She had assured us that she had a ride home from the hospital before she was given narcotic medication. [facility] Police Department was called and notified that the patient had eloped with an IV and under the influence. Staff Physician Addendum: I was working in the ER during the course of this patient's visit. I was available for consultation as needed, but I was not directly involved in the care of this patient. Dragon Disclaimer Dragon Disclaimer This electronic medical record was generated, in whole or in part, using a voice recognition dictation system. Departure Departure Impression: Primary Impression: Pelvic pain Additional Impression: Drug-seeking behavior Disposition: HOME, SELF-CARE Condition: STABLE Referrals: LATANYA SILVERIO MD (PCP) Patient Instructions: Pelvic Pain, Female Additional Instructions: Follow-up with your safety leader for further evaluation of this chronic pelvic pain. You may continue to take at home medications. If you are worsening return to the emergency department. Problem Qualifiers RICCARDO LONDON APRN Mar 04, 2018 15:13 SONIDO NASCIMENTO MD Mar 04, 2018 16:32
== END 2018-03-04 15:05 | disposition left against medical advice (07) ==
LOC: ER 11:23
DX: R10.2 Pelvic and perineal pain (principal); Z76.5 Malingerer [conscious simulation]; G43.909 Migraine, unspecified, not intractable, without status migrainosus; Z90.89 Acquired absence of other organs; N80.9 Endometriosis, unspecified; Z88.0 Allergy status to penicillin; Z88.8 Allergy status to other drugs, medicaments and biological substances; Z88.5 Allergy status to narcotic agent
CPT/HCPCS: 74022; 76856; 81001; 81025; 96374; 96375; 99284; J2405; J3010; Q0162; Q0163

== ENCOUNTER 2020-05-05 12:23 | Emergency (ER) | payer OTHER ==
[~2020-05-05] VITALS: Ht 165.1 cm; Wt 63.0 kg
[2020-05-05 12:35] VITALS: BP 153/88
[2020-05-05 12:55] LABS: BILIRUBIN,URINE NEGATIVE (NEG); CLARITY,URINE CLEAR; COLOR,URINE YELLOW; NITRITE,URINE NEGATIVE (NEG); PH,URINE 6.5 (<5.0-8.0); PROTEIN,URINE NEGATIVE (NEG-TRACE)
[2020-05-05] MEDS ORDERED: HYDROcodone/APAP 10/325 1 TAB TABLET PO ONE (13:00)
[2020-05-05] MEDS ORDERED: ONDANSETRON PF 4 MG/2 ML VIAL. IVP ONE (13:00)
[2020-05-05 13:03] LABS: BACTERIA,URINE FEW /HPF (0-FEW); RBC,URINE 0 /HPF (0-2); WBC,URINE OCC /HPF (0-4)
[2020-05-05 13:19] LABS: BASO % 1 % (0-3); EOS # 0.3 x10^3/uL (0.0-0.7); EOS % 6 % (0-3); HEMATOCRIT 34.3 % (36.0-47.0); HEMOGLOBIN 11.4 g/dL (12.0-15.5); LYMPH # 0.9 x10^3/uL (1.0-4.8); LYMPH % 23 % (24-48); MEAN CORPUSCULAR HEMOGLOBIN 27 pg (25-35); MEAN CORPUSCULAR HGB CONC 33 g/dL (31-37); MEAN CORPUSCULAR VOLUME 82 fL (79-100); MONO # 0.3 x10^3/uL (0.0-1.1); MONO % 8 % (0-9); NEUT # 2.6 x10^3/uL (1.8-7.7); NEUT % 63 % (31-73); PLATELET COUNT 135 x10^3/uL (140-400); RED BLOOD COUNT 4.17 x10^6/uL (3.50-5.40); RED CELL DISTRIBUTION WIDTH 15.8 % (11.5-14.5); WHITE BLOOD COUNT 4.1 x10^3/uL (4.0-11.0)
[2020-05-05 13:31] LABS: CALCIUM 8.2 mg/dL (8.5-10.1); CREATININE 0.9 mg/dL (0.6-1.0); POTASSIUM 3.7 mmol/L (3.5-5.1)
[2020-05-05 13:36] LABS: ALBUMIN 3.5 g/dL (3.4-5.0); ALBUMIN/GLOBULIN RATIO 1.1 (1.0-1.7); TOTAL BILIRUBIN 0.3 mg/dL (0.2-1.0); TOTAL PROTEIN 6.7 g/dL (6.4-8.2)
--- NOTE | 2020-05-05 14:06 | PHYS DOC ---
Past Medical History Past Medical History: Endometriosis, Other Additional Past Medical Histor: MIGRAINES, OVARIAN CYSTS Past Surgical History: Appendectomy, Other Additional Past Surgical Histo: HERNIA REPAIR, LAP SX FOR ENDOMETRIOSIS Smoking Status: Never Smoker Alcohol Use: Rarely Drug Use: None Social History Narrative: THC pen General Adult EDM: Chief Complaint: ABDOMINAL PAIN HPI: HPI: Patient is a 44 year old female who presented to ER with 2-day history of left lower abdominal pain, left-sided pelvic pain. Patient says she has a history of endometriosis, ovarian cyst. Patient feels like this is her endometriosis f laring up again. Patient denies any fever. Patient denies any nausea vomiting. Review of Systems: Review of Systems: Constitutional: Denies fever or chills. [] Eyes: Denies change in visual acuity. [] HENT: Denies nasal congestion or sore throat. [] Respiratory: Denies cough or shortness of breath. [] Cardiovascular: Denies chest pain or edema. [] GI: Positive for left lower abdominal pain, left-sided pelvic pain, denies any nausea vomiting, no diarrhea. : Denies dysuria. [] Denies any vaginal bleeding or discharge. Musculoskeletal: Denies back pain or joint pain. [] Integument: Denies rash. [] Neurologic: Denies headache, focal weakness or sensory changes. [] Endocrine: Denies polyuria or polydipsia. [] Lymphatic: Denies swollen glands. [] Psychiatric: Denies depression or anxiety. [] Heart Score: C/O Chest Pain: N/A Risk Factors: Risk Factors: DM, Current or recent (<one month) smoker, HTN, HLP, family history of CAD, obesity. Risk Scores: Score 0 - 3: 2.5% MACE over next 6 weeks - Discharge Home Score 4 - 6: 20.3% MACE over next 6 weeks - Admit for Clinical Observation Score 7 - 10: 72.7% MACE over next 6 weeks - Early Invasive Strategies Current Medications: Current Medications Medications (Trade) Dose Ordered Sig/Delvin Start Time Stop Time Status Last Admin Dose Admin Acetaminophen/ Hydrocodone Bitart (Lortab 10/325) 1 tab 1X ONCE 05/05/20 13:00 05/05/20 13:01 DC Ondansetron HCl (Zofran) 4 mg 1X ONCE 05/05/20 13:00 05/05/20 13:01 DC 05/05/20 13:13 4 MG Allergies: Allergies: Allergies Coded Allergies Type Severity Reaction Last Updated Verified Penicillins Allergy Intermediate hives 05/05/20 Yes fentanyl Allergy Intermediate Rash 05/05/20 Yes chlorpromazine Adverse Reaction Intermediate dystonia 05/05/20 Yes haloperidol Adverse Reaction Intermediate dystonia 05/05/20 No hydralazine Adverse Reaction Intermediate dystonia 05/05/20 Yes hydroxyzine Adverse Reaction Intermediate dystonia 05/05/20 Yes ketorolac Adverse Reaction Intermediate nausea and vomiting 05/05/20 Yes metoclopramide Adverse Reaction Intermediate dystonia 05/05/20 Yes morphine Adverse Reaction Intermediate migraines 05/05/20 Yes prochlorperazine Adverse Reaction Intermediate dystonia 05/05/20 Yes Physical Exam: PE: Constitutional: Well developed, well nourished, no acute distress, non-toxic appearance. [] HENT: Normocephalic, atraumatic, bilateral external ears normal, oropharynx moist, no oral exudates, nose normal. [] Eyes: PERRLA, EOMI, conjunctiva normal, no discharge. [] Neck: Normal range of motion, no tenderness, supple, no stridor. [] Cardiovascular:Heart rate regular rhythm, no murmur [] Lungs & Thorax: Bilateral breath sounds clear to auscultation [] Abdomen: Bowel sounds normal, soft, there is tenderness to left lower quadrant, left side pelvic area, no masses, no pulsatile masses. [] Skin: Warm, dry, no erythema, no rash. [] Back: No tenderness, no CVA tenderness. [] Extremities: No tenderness, no cyanosis, no clubbing, ROM intact, no edema. [] Neurologic: Alert and oriented X 3, normal motor function, normal sensory function, no focal deficits noted. [] Psychologic: Affect normal, judgement normal, mood normal. [] Current Patient Data: Labs: Laboratory Tests Test 05/05/20 12:45 05/05/20 12:47 05/05/20 13:05 Urine Color Yellow Urine Clarity Clear Urine pH 6.5 (<5.0-8.0) Urine Specific Gazelle 1.020 (1.000-1.030) Urine Protein Negative mg/dL (NEG-TRACE) Urine Glucose (UA) Negative mg/dL (NEG) Urine Ketones (Stick) Negative mg/dL (NEG) Urine Blood Negative (NEG) Urine Nitrite Negative (NEG) Urine Bilirubin Negative (NEG) Urine Urobilinogen Dipstick 1.0 mg/dL (0.2 mg/dL) Urine Leukocyte Esterase Negative (NEG) Urine RBC 0 /HPF (0-2) Urine WBC Occ /HPF (0-4) Urine Squamous Epithelial Cells Mod /LPF Urine Bacteria Few /HPF (0-FEW) Urine Mucus Marked /LPF POC Urine HCG, Qualitative Hcg negative (Negative) White Blood Count 4.1 x10^3/uL (4.0-11.0) Red Blood Count 4.17 x10^6/uL (3.50-5.40) Hemoglobin 11.4 g/dL (12.0-15.5) L Hematocrit 34.3 % (36.0-47.0) L Mean Corpuscular Volume 82 fL (79-100) Mean Corpuscular Hemoglobin 27 pg (25-35) Mean Corpuscular Hemoglobin Concent 33 g/dL (31-37) Red Cell Distribution Width 15.8 % (11.5-14.5) H Platelet Count 135 x10^3/uL (140-400) L Neutrophils (%) (Auto) 63 % (31-73) Lymphocytes (%) (Auto) 23 % (24-48) L Monocytes (%) (Auto) 8 % (0-9) Eosinophils (%) (Auto) 6 % (0-3) H Basophils (%) (Auto) 1 % (0-3) Neutrophils # (Auto) 2.6 x10^3/uL (1.8-7.7) Lymphocytes # (Auto) 0.9 x10^3/uL (1.0-4.8) L Monocytes # (Auto) 0.3 x10^3/uL (0.0-1.1) Eosinophils # (Auto) 0.3 x10^3/uL (0.0-0.7) Basophils # (Auto) 0.0 x10^3/uL (0.0-0.2) Sodium Level 139 mmol/L (136-145) Potassium Level 3.7 mmol/L (3.5-5.1) Chloride Level 105 mmol/L (98-107) Carbon Dioxide Level 26 mmol/L (21-32) Anion Gap 8 (6-14) Blood Urea Nitrogen 11 mg/dL (7-20) Creatinine 0.9 mg/dL (0.6-1.0) Estimated GFR (Cockcroft-Gault) 68.0 BUN/Creatinine Ratio 12 (6-20) Glucose Level 81 mg/dL (70-99) Calcium Level 8.2 mg/dL (8.5-10.1) L Total Bilirubin 0.3 mg/dL (0.2-1.0) Aspartate Amino Transferase (AST) 14 U/L (15-37) L Alanine Aminotransferase (ALT) 17 U/L (14-59) Alkaline Phosphatase 80 U/L (46-116) Total Protein 6.7 g/dL (6.4-8.2) Albumin 3.5 g/dL (3.4-5.0) Albumin/Globulin Ratio 1.1 (1.0-1.7) Lipase 62 U/L (73-393) L Laboratory Tests 05/05/20 13:05 Laboratory Tests 05/05/20 13:05 Vital Signs: Vital Signs Date Time Temp Pulse Resp B/P (MAP) Pulse Ox O2 Delivery O2 Flow Rate FiO2 05/05/20 12:35 98.8 77 18 153/88 (109) 99 Room Air 98.8 EKG: EKG: [] Radiology/Procedures: Radiology/Procedures: [] Course & Med Decision Making: Course & Med Decision Making Pertinent Labs and Imaging studies reviewed. (See chart for details) Patient is a 44-year-old female who presented with left side pelvic pain, left lower abdominal pain, suspect pelvic pain due to chronic problem endometriosis, ovarian cyst, ultrasound of her pelvic was ordered, patient refused to have the exam done until she was given pain medication, patient was ordered Zofran and Lortab 10. Patient declined the medication because she said it will not touch her pain. Patient would like to have a combination of Benadryl, ketamine, D ilaudid to control her pain. This physician explained to her that we would not give her that combination of pain medication until we find out what wrong with her first. Patient said if we are not going to give her that pain medication combination then she just leaves. Patient signed out AMA. Ju Disclaimer: Ju Disclaimer: This electronic medical record was generated, in whole or in part, using a voice recognition dictation system. Departure Departure Impression: Primary Impression: Abdominal pain Additional Impression: Pelvic pain Disposition: 07 AMA/ELOPED/LWBS Condition: STABLE Referrals: LATANYA SILVERIO MD (PCP) Patient Instructions: Discharge Against Medical Advice ERWIN LEUNG DO May 05, 2020 14:06
== END 2020-05-05 13:49 | disposition left against medical advice (07) ==
LOC: ER 12:23
DX: R10.32 Left lower quadrant pain (principal); R10.2 Pelvic and perineal pain; G43.909 Migraine, unspecified, not intractable, without status migrainosus; Z90.89 Acquired absence of other organs; Z98.890 Other specified postprocedural states; Z88.0 Allergy status to penicillin; Z88.5 Allergy status to narcotic agent; Z88.6 Allergy status to analgesic agent; Z88.8 Allergy status to other drugs, medicaments and biological substances
CPT/HCPCS: 36415; 80053; 81001; 81025; 83690; 85025; 96374; 99284; J2405